=== PATIENT | female | born 1985 | race American Indian/Alaskan Native ===

== ENCOUNTER 2016-06-06 11:17 | Outpatient (CLI) | payer MEDICAID ==
[2016-06-06 12:16] VITALS: BP 109/59
[2016-06-06] MEDS ORDERED: LACTATED RINGERS 500 ML IV ONE (12:42)
--- NOTE | 2016-06-06 14:09 | Ultrasound Report ---
ULTRASOUND OB LIMITED History: Premature rupture of membranes Technique: Transabdominal ultrasound with Doppler interrogation. Gestation: Single Position: Cephalic Amniotic Fluid: Normal VERNON = 13.5 cm Heart Rate: 131 BPM
== END 2016-06-06 13:53 | disposition home or self-care (01) ==
LOC: TRG 11:17
PROVIDERS: ATTEND Obstetrics & Gynecology
DX: O42.92 Full-term premature rupture of membranes, unspecified as to length of time between rupture and onset of labor (principal); Z3A.36 36 weeks gestation of pregnancy
CPT/HCPCS: 59025; 76815

== ENCOUNTER 2016-06-16 20:03 | Outpatient (CLI) | payer MEDICAID ==
[2016-06-16 20:31] VITALS: BP 115/71
== END 2016-06-16 21:30 | disposition home or self-care (01) ==
LOC: TRG 20:03
PROVIDERS: ATTEND Obstetrics & Gynecology Gynecology
DX: Z34.93 Encounter for supervision of normal pregnancy, unspecified, third trimester (principal); Z3A.38 38 weeks gestation of pregnancy
CPT/HCPCS: 59025

== ENCOUNTER 2016-06-19 18:43 | Inpatient (IN) | payer MEDICAID ==
[2016-06-19] MEDS ORDERED: PHENERGAN PO PRN (20:56)
[2016-06-19] MEDS ORDERED: NARCAN 0.4 MG/1 ML IV PRN (20:56)
[2016-06-19] MEDS ORDERED: ePHEDrine SULFATE IV PRN (20:56)
[2016-06-19] MEDS ORDERED: BRETHINE IVP PRN (20:56)
[2016-06-19] MEDS ORDERED: BRETHINE SUB-Q PRN (20:56)
[2016-06-19] MEDS ORDERED: MINERAL OIL PO PRN (20:56)
[2016-06-19] MEDS ORDERED: STADOL IV PRN (20:56)
[2016-06-19] MEDS ORDERED: SUBLIMAZE IV PRN (20:56)
[2016-06-19] MEDS ORDERED: XYLOCAINE 2% INFILTRATI ONE (20:56)
[2016-06-19] MEDS ORDERED: ZOFRAN IV PRN (20:56)
[2016-06-19] MEDS ORDERED: PITOCin/NS 30 UNIT/500ML 30 UNITS/500 ML BAG IV SCH ×2 (21:00)
[2016-06-19] MEDS ORDERED: PITOCin/NS 20 UNIT/1000ML DRIP 20 UNITS/1,000 ML BAG IV SCH (21:00)
--- NOTE | 2016-06-19 21:08 | History and Physical Report ---
History of Present Illness Date of examination: 06/19/16 Chief complaint: Labor History of present illness: Pt is a 30yo BF EDC 06/29/16; EGA 38 4/7 weeks presents to L&D complaining of RUC's q 3-4 mins. She received care at [facility] since 13 weeks and course has been unremarkable except for h/o THC use and anemia. records are available and GBS is negative. Past History Past Medical History: no pertinent history Past Surgical History: no surgical history Social history: no significant social history, single, smoking - Obstetrical History Expected Date of Delivery: 06/29/16 Actual Gestation: 38 Week(s) 5 Day(s) : 6 Medications and Allergies Allergies Allergy/AdvReac Type Severity Reaction Status Date / Time No Known Allergies Allergy Verified 06/13/15 06:22 Home Medications Medication Instructions Recorded Confirmed Last Taken Type No Known Home Medications [No 06/27/13 06/13/15 Unknown History Reported Home Medications] Active Meds: Active Medications Butorphanol Tartrate (Stadol) 2 mg IV Q2H PRN PRN Reason: Pain , Severe (7-10) Ephedrine Sulfate (Ephedrine Sulfate) 10 mg IV Q2M PRN PRN Reason: Hypotension Stop: 06/19/16 21:01 Fentanyl (Sublimaze) 100 mcg IV Q2H PRN PRN Reason: Labor Pain Lactated Ringer's (Lactated Ringers) 1,000 mls @ 125 mls/hr IV DIRECT JULIANE Oxytocin/Sodium Chloride (Pitocin/Ns 20 Unit/1000ml Drip) 20 units in 1,000 mls @ 125 mls/hr IV DIRECT JULIANE Oxytocin/Sodium Chloride (Pitocin/Ns 30 Unit/500ml) 30 units in 500 mls @ 4 mls /hr IV TITR JULIANE PRN Reason: Protocol Oxytocin/Sodium Chloride (Pitocin/Ns 30 Unit/500ml) 30 units in 500 mls @ 1 mls /hr IV TITR JULIANE; 1 MILLIUNITS/MIN PRN Reason: Protocol Lidocaine (Xylocaine 2%) 20 ml INFILTRATI ONCE ONE Stop: 06/19/16 20:57 Mineral Oil (Mineral Oil) 30 ml PO QHS PRN PRN Reason: Constipation Naloxone HCl (Narcan 0.4 Mg/1 Ml) 0.1 mg IV Q2MIN PRN PRN Reason: Res Rate </= 8 or 02 SAT < 92% Ondansetron HCl (Zofran) 4 mg IV Q8H PRN PRN Reason: Nausea And Vomiting Promethazine HCl (Phenergan) 25 mg PO Q6H PRN PRN Reason: Nausea And Vomiting Terbutaline Sulfate (Brethine) 0.25 mg SUB-Q ONCE PRN PRN Reason: Hyperstimulation/Hypertonicity Stop: 06/19/16 20:57 Terbutaline Sulfate (Brethine) 0.25 mg IVP ONCE PRN PRN Reason: Hyperstimulation/Hypertonicity Stop: 06/19/16 20:57 Review of Systems All systems: negative - Vital Signs Vital signs: Vital Signs Pulse BP 91 H 110/69 06/19/16 19:08 06/19/16 19:08 Temp Pulse Resp BP Pulse Ox 98.2 F 84 18 110/69 97 06/19/16 19:20 06/19/16 20:29 06/19/16 19:20 06/19/16 19:08 06/19/16 20:29 - Physical Exam Breasts: Positive: deferred Cardiovascular: Regular rate Lungs: Positive: Clear to auscultation Abdomen: Positive: normal appearance Genitourinary (Female): Positive: normal external genitalia Uterus: Positive: enlarged Extremities: Positive: normal - Obstetrical FHR: category 1 Uterine Contraction Monitor Mode: External Cervical Dilatation: 4 Cervical Effacement Percentage: 80 station: -2 Uterine Contraction Pattern: Regular Uterine Tone Measurement Phase: Contraction Uterine Contraction Intensity: Moderate Results Result Diagrams: 06/19/16 21:10 All other labs normal. Assessment and Plan - Patient Problems (1) 38 weeks gestation of Onset Date: 06/20/16 Current Visit: Yes Status: Acute Plan to address problem: A: IUP @ 38 5/7 weeks in labor P: Admit to L&D for expectant vaginal delivery
[2016-06-19 21:52] LABS: Hematocrit 25.6 % (30.3-42.9); Hemoglobin 8.1 gm/dl (10.1-14.3); Mean Corpuscular HGB Conc 32 % (30-34); Mean Corpuscular Volume 82 fl (79-97); Platelet Count 246 K/mm3 (140-440); Red Blood Count 3.14 M/mm3 (3.65-5.03)
[2016-06-19] MEDS: LACTATED RINGERS 1,000 ML IV SCH ×2 (22:03→23:02)
[2016-06-19 22:55] LABS: Mean Corpuscular Hemoglobin 26 pg (28-32)
[2016-06-19] MEDS ORDERED: ePHEDrine SULFATE ONE (23:20)
[2016-06-20] MEDS ORDERED: ePHEDrine SULFATE IV PRN (00:26)
--- NOTE | 2016-06-20 00:26 | Anesthesia Consultation ---
Anesthesia Consult and Med Hx Date of service: 06/20/16 - Airway Anesthetic Teeth Evaluation: Good ROM Head & Neck: Adequate Mental/Hyoid Distance: Adequate Mallampati Class: Class II Intubation Access Assessment: Probably Good - Pulmonary Exam CTA: Yes - Cardiac Exam Cardiac Exam: RRR - Pre-Operative Health Status ASA Pre-Surgery Classification: ASA2 Proposed Anesthetic Plan: Epidural, Spinal - Pulmonary Hx Smoking: Yes (current smoker) Hx Asthma: No COPD: No Hx Pneumonia: No - Cardiovascular System Hx Hypertension: No Hx Heart Attack/AMI: No Hx Pacemaker: No Hx Internal Defibrillator: No - Central Nervous System Hx Seizures: No Hx Psychiatric Problems: No - Endocrine Hx Renal Disease: No Hx End Stage Renal Disease: No Hx Liver Disease: No Hx Hypothyroidism: No Hx Hyperthyroidism: No - Hematic Hx Anemia: Yes Hx Sickle Cell Disease: No - Other Systems Hx Alcohol Use: No - Additional Comments Anesthesia Medical History Comments: +IUP
--- NOTE | 2016-06-20 00:36 | Procedure Note ---
OB Delivery Note - Delivery Date of Delivery: 06/20/16 Surgeon: ALIREZA GOMEZ Estimated blood loss: 200cc - Vaginal Delivery presentation: vertex Delivery position: OA Intrapartum events: none Delivery induction: oxytocin Delivery augmentation: rupture of membranes Delivery monitor: external FHT, external uterine Route of delivery: Delivery placenta: spontaneous Delivery cord: 3 umbilical vessels Episiotomy: none Delivery laceration: none Anesthesia: epidural - A at 1 minute: 8 at 5 minutes: 9 Gender: Male (2939gms)
[2016-06-20] MEDS ORDERED: MILK OF MAGNESIA PO PRN (00:48)
[2016-06-20] MEDS ORDERED: DERMOPLAST TP PRN (00:48)
[2016-06-20] MEDS ORDERED: LANSINOH TP PRN (00:48)
[2016-06-20] MEDS ORDERED: PHENERGAN PR PRN (00:48)
[2016-06-20] MEDS ORDERED: PHENERGAN PO PRN (00:48)
[2016-06-20] MEDS ORDERED: NORCO 5/325 PO PRN (00:48)
[2016-06-20] MEDS ORDERED: DULCOLAX PR PRN (00:48)
[2016-06-20] MEDS ORDERED: ANUCORT-HC PR PRN (00:48)
[2016-06-20] MEDS ORDERED: TYLENOL PO PRN (00:48)
[2016-06-20] MEDS ORDERED: ZOFRAN IV PRN (00:48)
[2016-06-20] MEDS ORDERED: BENADRYL PO PRN (00:48)
[2016-06-20] MEDS ORDERED: TUCKS PAD TP PRN (00:48)
[2016-06-20] MEDS ORDERED: SODIUM CHLORIDE FLUSH SYRINGE 10 ML IV NR (01:00)
[2016-06-20] MEDS ORDERED: PITOCin/NS 20 UNIT/1000ML DRIP 20 UNITS/1,000 ML BAG IV SCH (01:00)
[2016-06-20] MEDS ORDERED: fentaNYL-BUPIV 2 MCG/ML-0.125% 200 MCG/100 ML BAG EPIDURAL SCH (01:00)
[2016-06-20] MEDS: MOTRIN PO SCH ×3 (05:38→17:41)
[2016-06-20] MEDS ORDERED: COLACE PO SCH (10:00)
[2016-06-20] MEDS ORDERED: PRENATAL VITAMIN PO SCH (10:00)
[2016-06-20] MEDS: FEOSOL PO SCH ×2 (10:05→21:55)
[2016-06-20] MEDS: SENOKOT S PO SCH ×2 (10:05→21:55)
[2016-06-20 13:51] LABS: Hematocrit 24.8 % (30.3-42.9)
[2016-06-21] MEDS: MOTRIN PO SCH ×2 (00:48→05:36)
[2016-06-21] MEDS ORDERED: M-M-R II VACCINE SUB-Q ONE (06:00)
[2016-06-21] MEDS ORDERED: BOOSTRIX IM ONE (06:05)
--- NOTE | 2016-06-21 09:54 | Progress Note ---
Assessment and Plan - Patient Problems (1) 38 weeks gestation of Onset Date: 06/20/16 Current Visit: Yes Status: Resolved (2) (normal spontaneous vaginal delivery) Onset Date: 06/21/16 Current Visit: Yes Status: Resolved Plan to address problem: A: S/P - PPD #1 Doing well Asymptomatic anemia - stable P: May go home today Subjective - Subjective Date of service: 06/21/16 Principal diagnosis: s/p - PPD #1 Interval history: Pt is feeling well without complaints. Bleeding improved. Patient reports: appetite normal, voiding normally, pain well controlled, ambulating normally : doing well, bottle feeding Objective - Vital Signs Latest vital signs: Vital Signs Temp Pulse Resp BP 06/21/16 00:00 98.6 F 56 L 18 110/69 06/20/16 20:00 98.6 F 77 16 120/76 06/20/16 15:45 98.4 F 86 18 137/76 06/20/16 11:45 98.3 F 65 16 110/70 Intake and Output 06/20/16 06/21/16 06/21/16 22:59 06:59 14:59 Intake Total 720 Balance 720 Intake: Oral 720 Other: Total, Intake Amount 720 # Voids Void 1 - Exam Breasts: Present: deferred Cardiovascular: Present: Regular rate Lungs: Present: Clear to auscultation Abdomen: Present: normal appearance, soft Uterus: Present: normal, firm, fundal height below umbilicus Extremities: Present: normal - Labs Labs: Abnormal lab results 06/20/16 Range/Units 12:44 Hgb 8.0 L (10.1-14.3) gm/dl Hct 24.8 L (30.3-42.9) % Laboratory Tests 06/19/16 06/19/16 06/20/16 21:10 21:10 12:44 WBC 13.0 H RBC 3.14 L Hgb 8.1 L 8.0 L Hct 25.6 L 24.8 L MCV 82 MCH 26 L MCHC 32 RDW 16.0 H Plt Count 246 Blood Type A POSITIVE Antibody Screen Negative
[2016-06-21 10:00] VITALS: BP 106/71
--- NOTE | 2016-06-21 10:21 | Discharge Summary ---
Providers - Providers Date of Admission: 06/19/16 20:57 Date of discharge: 06/21/16 Attending physician: ALIREZA GOMEZ Primary care physician: ALIREZA GOMEZ Hospitalization Reason for admission: active labor, IUP at term Delivery: Episiotomy: none Laceration: none Other procedures: none complications: none Discharge diagnosis: IUP at term delivered Tower baby: male Hospital course: Unremarkable. Condition at discharge: Good Disposition: DISCHARGED TO HOME OR SELFCARE - Discharge Diagnoses (1) 38 weeks gestation of Status: Resolved (2) (normal spontaneous vaginal delivery) Status: Resolved Plan - Discharge Medications Prescriptions: Ferrous Sulfate [Feosol 325 MG tab] 325 mg PO BID #60 tablet Ibuprofen [Motrin 600 MG tab] 600 mg PO Q6H #30 tablet Vit-Fe Fumar-FA [ Vitamin] 1 each PO QDAY #30 tablet - Provider Discharge Summary Activity: routine, no sex for 6 weeks, no heavy lifting 4 weeks, no strenuous exercise Diet: routine Instructions: routine Additional instructions: [] Smoking cessation referral if applicable(refer to patient education folder for contact #) [] Refer to [facility]'s [facility] Booklet Call your doctor immediately for: * Fever > 100.5 * Heavy vaginal bleeding ( >1 pad per hour) * Severe persistent headache * Shortness of breath * Reddened, hot, painful area to leg or breast * Drainage or odor from incision. * Keep incision clean and dry at all times and follow doctor's instructions regarding bathing/showering - Follow up plan Follow up: ALIREZA GOMEZ MD [Primary Care Provider] - 14 Days
--- NOTE | 2016-06-21 13:26 | Progress Note ---
Subjective Date of service: 06/21/16 Principal diagnosis: s/p - PPD #1 Interval history: 1st day after normal vaginal delivery Patient is in the bed, comfortable. Pain is mostly controlled with pain meds. Ambulated well. No nausea or vomiting. No residual neurological deficit. No anesthesia complications Objective - Constitutional Vitals: Vital Signs - 12hr 06/21/16 08:50 Temperature 98.5 F Pulse Rate [ 61 From Monitor] Respiratory 24 Rate Blood Pressure 106/71 [Left Arm] - Labs CBC & Chem 7: 06/20/16 12:44 Labs: Abnormal lab results 06/20/16 Range/Units 12:44 Hgb 8.0 L (10.1-14.3) gm/dl Hct 24.8 L (30.3-42.9) %
== END 2016-06-21 12:10 | disposition home or self-care (01) | DRG 775 ==
LOC: TRG 18:43 → LD 20:57 → OB 06-20 03:22
PROVIDERS: ADMIT Obstetrics & Gynecology; ATTEND Obstetrics & Gynecology
PROC: 10E0XZZ Delivery of Products of Conception, External Approach (ICD-10-PCS; principal; 2016-06-20)
PROC: 3E033VJ Introduction of Other Hormone into Peripheral Vein, Percutaneous Approach (ICD-10-PCS; 2016-06-20)
PROC: 00HU33Z Insertion of Infusion Device into Spinal Canal, Percutaneous Approach (ICD-10-PCS; 2016-06-20)
PROC: 3E0R3CZ (ICD-10-PCS; 2016-06-20)
DX: O99.02 Anemia complicating childbirth (principal); O99.334 Smoking (tobacco) complicating childbirth; O99.324 Drug use complicating childbirth; D64.9 Anemia, unspecified; Z3A.38 38 weeks gestation of pregnancy; Z37.0 Single live birth
CPT/HCPCS: 36415; 85014; 85018; 85027; 86850; 86900; 86901; 99406; J2590; J3010; J7120

== ENCOUNTER 2016-08-13 06:58 | Emergency (ER) | payer MEDICAID | END 2016-08-13 12:36 | disposition left against medical advice (07) | LOC: ED 06:58 | DX: M54.5 Low back pain (principal); Z53.21 Procedure and treatment not carried out due to patient leaving prior to being seen by health care provider ==

== ENCOUNTER 2016-08-13 07:11 | Day surgery (SDC) | payer MEDICAID ==
--- NOTE | 2016-08-13 07:23 | Short Stay Summary ---
Short Stay Documentation Date of service: 08/13/16 Narrative H&P: Pt is a 31yo BF S/P 06/20/16 presents for permanent sterilization - History Principal diagnosis: Desires permanent sterilization H&P: obtained from office Past Medical History: No medical history Past Surgical History: No surgical history Social history: no significant social history, single - Allergies and Medications Current Medications: Allergies No Known Allergies Allergy (Verified 08/08/16 10:20) Active Medications Cefazolin Sodium (Ancef/Sterile Water 2 Gm/20 Ml) 2 gm in 20 mls @ 80 mls/hr IV PREOP NR PRN Reason: Protocol Lactated Ringer's (Lactated Ringers) 1,000 mls @ 125 mls/hr IV DIRECT JULIANE - Physical exam General appearance: no acute distress Integumentary: no rash HEENT: Atraumatic Lungs: Clear to auscultation Breasts: deferred Heart: Regular rate Gastrointestinal: normal Female Genitourinary: deferred Rectal Exam: deferred Extremities: No edema Neurological: Normal gait, Normal speech - Brief post op/procedure progress note Date of procedure: 08/13/16 Pre-op diagnosis: Desires permanent sterilization Post-op diagnosis: same Procedure: Laproscopic Bilateral Tubal Ligation Anesthesia: GETA Findings: Normal uterus. Normal tubes and ovaries bilaterally. Normal appendix. Surgeon: ALIREZA GOMEZ Estimated blood loss: minimal Pathology: none Condition: stable - Hospital course Hospital course: Unremarkable. - Disposition Condition at discharge: Good Disposition: DISCHARGED TO HOME OR SELFCARE - Discharge Diagnoses (1) Sterilization Status: Resolved (2) Contraception management Status: Resolved Qualifiers: Contraceptive encounter type: sterilization IUD management: I Contraceptive type: C Qualified Code(s): Z30.2 - Encounter for sterilization Short Stay Discharge Plan Activity: no restrictions Diet: regular Wound: open to air, keep clean and dry Follow up with: ALIREZA GOMEZ MD [Primary Care Provider] - 14 Days Prescriptions: HYDROcodone/APAP 5-325 [[place] 5/325] 1 each PO Q6HR PRN #20 tablet PRN Reason: Pain
[2016-08-13] MEDS ORDERED: MARCAINE 0.5% 30 ML INFILTRATI ONE (07:49)
[2016-08-13] MEDS ORDERED: DILAUDID ONE (07:59)
[2016-08-13] MEDS ORDERED: DIPRIVAN 10 MG/ML IV ONE (08:00)
[2016-08-13] MEDS ORDERED: NEO SYNEPHRINE/NS Syringe(OR USE) IV ONE (08:00)
[2016-08-13] MEDS ORDERED: ANCEF/STERILE WATER 2 GM/20 ML 2 GM/20 ML SYRINGE IV NR (08:00)
[2016-08-13] MEDS ORDERED: LACTATED RINGERS 1,000 ML IV SCH (08:00)
[2016-08-13] MEDS ORDERED: ZEMURON IV ONE (08:02)
[2016-08-13] MEDS ORDERED: XYLOCAINE MPF 2% ONE (08:02)
[2016-08-13] MEDS ORDERED: ZOFRAN ONE (08:03)
[2016-08-13] MEDS ORDERED: DECADRON ONE (08:03)
[2016-08-13] MEDS ORDERED: NEOSTIGMINE ONE (08:03)
[2016-08-13] MEDS ORDERED: ROBINUL ONE ×2 (08:03)
--- NOTE | 2016-08-13 08:19 | Anesthesia Consultation ---
Anesthesia Consult and Med Hx Date of service: 08/13/16 - Airway Anesthetic Teeth Evaluation: Poor, Chipped (multiple chipped/damaged upper front , all molars pulled) ROM Head & Neck: Adequate Mental/Hyoid Distance: Adequate Mallampati Class: Class II Intubation Access Assessment: Probably Good - Pulmonary Exam CTA: Yes - Cardiac Exam Cardiac Exam: RRR - Pre-Operative Health Status ASA Pre-Surgery Classification: ASA2 Proposed Anesthetic Plan: General - Pulmonary Hx Smoking: Yes (3-4 cigs/day) Hx Asthma: No COPD: No Hx Pneumonia: No - Cardiovascular System Hx Hypertension: No Hx Heart Attack/AMI: No Hx Pacemaker: No Hx Internal Defibrillator: No - Central Nervous System Hx Seizures: No Hx Psychiatric Problems: No - Endocrine Hx Renal Disease: No Hx End Stage Renal Disease: No Hx Liver Disease: No Hx Hypothyroidism: No Hx Hyperthyroidism: No - Hematic Hx Anemia: Yes Hx Sickle Cell Disease: No - Other Systems Hx Alcohol Use: No Hx Cancer: No
--- NOTE | 2016-08-13 08:20 | Anesthesia Day of Surgery ---
Anesthesia Day of Surgery - Day of Surgery Patient Examined: Yes Patient H&P Reviewed: Yes Patient is NPO: Yes
[2016-08-13] MEDS ORDERED: NACL BACTERIOSTATIC INFILTRATI ONE (08:28)
[2016-08-13] MEDS ORDERED: PEPCID IV NR (09:00)
[2016-08-13] MEDS ORDERED: VERSED IV NR (09:00)
[2016-08-13 09:04] LABS: Hematocrit 33.8 % (30.3-42.9); Hemoglobin 10.5 gm/dl (10.1-14.3)
[2016-08-13] MEDS ORDERED: NACL 0.9% IR ONE (09:14)
[2016-08-13] MEDS ORDERED: MARCAINE 0.5% INFILTRATI ONE ×3 (09:14)
[2016-08-13] MEDS ORDERED: LACTATED RINGERS 1,000 ML ONE (09:36)
--- NOTE | 2016-08-13 09:48 | Operative Report ---
Operative Report Operative Report: PREOPERATIVE DIAGNOSIS: Desires permanent sterilization POSTOPERATIVE DIAGNOSIS: Same OPERATIVE PROCEDURE: Laparoscopic bilateral tubal ligation. SURGEON: Maurice Ruiz MD ANESTHESIA: General endotracheal intubation ANESTHESIOLOGIST: Dr. Kaplan ESTIMATED BLOOD LOSS: 10 mL's FINDINGS: A normal uterus with normal tubes and ovaries bilaterally. Normal appendix. COMPLICATIONS: None COUNTS: Correct x3. PROCEDURE: After the patient was correctly identified and after general anesthesia was administered, the patient was prepped and draped in usual sterile fashion and placed in dorsal lithotomy position. First, the bladder was emptied using a straight catheter. Next, a speculum was placed in the vaginal vault and the anterior lip of the cervix was grasped using a single- tooth tenaculum. The uterine manipulator was then placed and the tenaculum and speculum were removed. Attention was then turned to the abdomen where first a periumbilical incision was made using a skin knife, and the Optiview trocar was inserted under direct visualization. After an adequate amount of abdominal insufflation, visualization of the pelvic organs found the uterus to be normal, and the tubes and ovaries to be normal bilaterally. Next, the left fallopian tube was grasped using the Kleppingers, and after identifying the fimbriated end of the left tube, this tube was cauterized in 3 continuous [address] along the proximal portion of the left tube. The same procedure was performed on the right fallopian tube after first identifying the fimbriated end of the right tube. This tube was also cauterized in 3 continuous places along the proximal portion of the right tube. At this point, the procedure was then considered complete. All instruments were removed from the abdomen. The abdomen was deflated and the periumbilical incision was closed using 0 Vicryl suture in a [id number] configuration on the fascia, followed by 4-0 Monocryl suture in subcuticular fashion on the skin. The incision was also infiltrated using 0.5% Marcaine solution. The uterine manipulator was removed. The patient tolerated the procedure well and was transferred to recovery room stable condition.
--- NOTE | 2016-08-13 10:38 | Post Anesthesia Evaluation ---
- Post Anesthesia Evaluation Patient Participated: Yes Airway Patent: Yes Stable Respiratory Function: Yes Nausea/Vomiting: No Temp > 96.8F: Yes Pain Manageable: Yes Adequeate Hydration: Yes Anesthesia Complications: No Block Receding Appropriately: Not Applicable Patient on Ventilator: No
[2016-08-13 10:44] VITALS: BP 114/66
== END 2016-08-13 11:15 | disposition home or self-care (01) ==
LOC: OR 07:11
PROVIDERS: ATTEND Obstetrics & Gynecology
DX: Z30.2 Encounter for sterilization (principal); F17.210 Nicotine dependence, cigarettes, uncomplicated; D64.9 Anemia, unspecified
CPT/HCPCS: 36415; 58670; 81025; 85014; 85018; J0690; J1100; J1170; J2250; J2370; J2405; J2704; J2710; J7120

== ENCOUNTER 2017-02-02 22:45 | Emergency (ER) | payer SELFPAY ==
[2017-02-03 03:43] VITALS: BP 111/74
--- NOTE | 2017-02-03 08:19 | Event Note ---
Date: 02/03/17 no answer in wr [id number]
== END 2017-02-03 07:20 | disposition left against medical advice (07) ==
LOC: ED 22:45
DX: M54.5 Low back pain (principal); Z53.21 Procedure and treatment not carried out due to patient leaving prior to being seen by health care provider

== ENCOUNTER 2018-11-14 23:46 | Emergency (ER) | payer SELFPAY ==
[2018-11-14 23:54] VITALS: BP 117/73
[2018-11-15 00:32] LABS: Basophils # (Auto) 0.1 K/mm3 (0.0-0.1); Eosinophils # (Auto) 0.2 K/mm3 (0.0-0.4); Eosinophils % (Auto) 2.8 % (0.0-4.3); Hematocrit 34.6 % (30.3-42.9); Hemoglobin 11.3 gm/dl (10.1-14.3); Lymphocytes # (Auto) 2.5 K/mm3 (1.2-5.4); Lymphocytes % (Auto) 29.5 % (13.4-35.0); Mean Corpuscular HGB Conc 33 % (30-34); Mean Corpuscular Volume 85 fl (79-97); Monocytes # (Auto) 0.6 K/mm3 (0.0-0.8); Monocytes % (Auto) 7.1 % (0.0-7.3); Platelet Count 284 K/mm3 (140-440); Red Blood Count 4.07 M/mm3 (3.65-5.03); Red Cell Distribution Width 18.8 % (13.2-15.2)
[2018-11-15 00:45] LABS: Albumin 4.2 g/dL (3.9-5); BUN/Creatinine Ratio 10; Blood Urea Nitrogen 8 mg/dL (7-17); Calcium 9.3 mg/dL (8.4-10.2); Hemolysis Index 5
[2018-11-15 00:51] LABS: Alanine Aminotransferase < 5 units/L (7-56)
[2018-11-15] MEDS ORDERED: NACL 0.9% 1000 ML 1,000 ML IV ONE (03:21)
[2018-11-15] MEDS ORDERED: ZOFRAN IV ONE (03:21)
--- NOTE | 2018-11-15 03:45 | Emergency Department Report ---
ED Abdominal Pain HPI - General Chief Complaint: Abdominal Pain Stated Complaint: ABDOMINAL AND BACK PAIN Time Seen by Provider: 11/15/18 03:20 Source: patient Mode of arrival: Ambulatory Limitations: No Limitations - History of Present Illness Initial Comments: Patient is a 33-year-old -[place] female who presents for abdominal pain bilateral lower body by 1 with MR with low as long low level Y the all normal he no perianal exam reveals normal 3 days rated at 5/10 there is no n/v no fever or chills. pt is tolerating po intake denies hx of ovarian cyst no fibroids, no dysuria frequency or urgency, no vaginal discharge or bleeding. MD Complaint: abdominal pain (-year-old) Onset/Timin -: days(s) Location: LLQ, RLQ Radiation: LLQ, RLQ Severity: moderate Severity scale (0 -10): 4 Quality: cramping Consistency: constant Improves With: nothing Worsens With: nothing Associated Symptoms: nausea. denies: vomiting, diarrhea, fever, chills, constipation, dysuria, melena, hematuria - Related Data LMP Date: 11/09/18 Home Medications Medication Instructions Recorded Confirmed Last Taken medroxyPROGESTERone ACETATE 150 mg IM ONCE 08/13/16 08/13/16 06/29/16 [Depo-Provera (Contraception)] Previous Rx's Medication Instructions Recorded Last Taken Type HYDROcodone/APAP 5-325 [[place] 1 each PO Q6HR PRN #20 tablet 08/13/16 Unknown Rx 5/325] Ciprofloxacin HCl [Cipro] 500 mg PO BID #14 tablet 02/17/18 Unknown Rx Ibuprofen [Motrin] 600 mg PO Q8H PRN #20 tablet 02/17/18 Unknown Rx traMADol [Ultram] 50 mg PO Q6HR PRN #12 tablet 02/17/18 Unknown Rx Phenazopyridine [Pyridium] 200 mg PO TID #9 tab 02/20/18 Unknown Rx Ibuprofen [Motrin 800 MG tab] 800 mg PO Q8HR PRN #30 tablet 11/15/18 Unknown Rx Nitrofurantoin Archer/M-Cryst 100 mg PO BID 7 Days #14 capsule 11/15/18 Unknown Rx [Macrobid CAP] Allergies Allergy/AdvReac Type Severity Reaction Status Date / Time No Known Allergies Allergy Verified 02/20/18 13:22 ED Review of Systems ROS: Stated complaint: ABDOMINAL AND BACK PAIN Other details as noted in HPI Constitutional: denies: chills, fever Eyes: denies: eye pain, eye discharge, vision change ENT: denies: ear pain, throat pain Respiratory: denies: cough, shortness of breath, wheezing Cardiovascular: denies: chest pain, palpitations Endocrine: no symptoms reported Gastrointestinal: abdominal pain, nausea. denies: vomiting, diarrhea, constipation, hematemesis, melena Genitourinary: denies: urgency, dysuria, discharge Musculoskeletal: denies: back pain, joint swelling, arthralgia Skin: denies: rash, lesions Neurological: denies: headache, weakness, paresthesias Psychiatric: denies: anxiety, depression Hematological/Lymphatic: denies: easy bleeding, easy bruising ED Past Medical Hx - Past Medical History Previous Medical History?: Yes Hx Hypertension: No Hx CVA: No Hx Heart Attack/AMI: No Hx Congestive Heart Failure: No Hx Diabetes: No Hx Deep Vein Thrombosis: No Hx Pulmonary Embolism: No Hx GERD: No Hx Liver Disease: No Hx Renal Disease: No Hx Sickle Cell Disease: No Hx Arthritis: No Hx Headaches / Migraines: No Hx Seizures: No Hx Kidney Stones: No Hx Psychiatric Treatment: No Hx Asthma: Yes Hx COPD: No Hx Tuberculosis: No Hx Dementia: No Hx HIV: No - Surgical History Past Surgical History?: Yes Hx Coronary Stent: No Hx Open Heart Surgery: No Hx Pacemaker: No Hx Internal Defibrillator: No Hx Cholecystectomy: No Hx Appendectomy: No Hx Breast Surgery: No Additional Surgical History: tubal ligation 07/2016 - Social History Smoking Status: Current Every Day Smoker Substance Use Type: None - Medications Home Medications: Home Medications Medication Instructions Recorded Confirmed Last Taken Type HYDROcodone/APAP 5-325 [[place] 1 each PO Q6HR PRN #20 tablet 08/13/16 Unknown Rx 5/325] medroxyPROGESTERone ACETATE 150 mg IM ONCE 08/13/16 08/13/16 06/29/16 History [Depo-Provera (Contraception)] Ciprofloxacin HCl [Cipro] 500 mg PO BID #14 tablet 02/17/18 Unknown Rx Ibuprofen [Motrin] 600 mg PO Q8H PRN #20 tablet 02/17/18 Unknown Rx traMADol [Ultram] 50 mg PO Q6HR PRN #12 tablet 02/17/18 Unknown Rx Phenazopyridine [Pyridium] 200 mg PO TID #9 tab 02/20/18 Unknown Rx Ibuprofen [Motrin 800 MG tab] 800 mg PO Q8HR PRN #30 tablet 11/15/18 Unknown Rx Nitrofurantoin Archer/M-Cryst 100 mg PO BID 7 Days #14 capsule 11/15/18 Unknown Rx [Macrobid CAP] ED Physical Exam - General Limitations: No Limitations General appearance: alert, in no apparent distress - Head Head exam: Present: atraumatic, normocephalic - Eye Eye exam: Present: normal appearance, PERRL, EOMI Pupils: Present: normal accommodation - ENT ENT exam: Present: normal orophraynx, mucous membranes moist, TM's normal bilaterally, normal external ear exam - Neck Neck exam: Present: normal inspection, tenderness, full ROM. Absent: lymphadenopathy - Respiratory Respiratory exam: Present: normal lung sounds bilaterally. Absent: respiratory distress, wheezes, stridor, chest wall tenderness - Cardiovascular Cardiovascular Exam: Present: regular rate, normal rhythm, normal heart sounds. Absent: systolic murmur, diastolic murmur, rubs, gallop - GI/Abdominal GI/Abdominal exam: Present: soft, normal bowel sounds. Absent: distended, tenderness, bruit, hernia - Rectal Rectal exam: Present: deferred - Extremities Exam Extremities exam: Present: normal inspection, normal capillary refill. Absent: calf tenderness - Back Exam Back exam: Present: normal inspection, full ROM. Absent: tenderness, CVA tenderness (R), CVA tenderness (L), muscle spasm, paraspinal tenderness, rash noted - Neurological Exam Neurological exam: Present: alert, oriented X3, CN II-XII intact, normal gait - Psychiatric Psychiatric exam: Present: normal affect, normal mood - Skin Skin exam: Present: warm, dry, intact, normal color. Absent: rash ED Course Vital Signs 11/14/18 23:52 Temperature 99 F Pulse Rate 80 Respiratory 18 Rate Blood Pressure 117/73 O2 Sat by Pulse 98 Oximetry ED Medical Decision Making - Lab Data Result diagrams: 11/15/18 00:13 11/15/18 00:13 Labs 11/14/18 11/15/18 11/15/18 04:10 00:13 00:13 WBC 8.6 RBC 4.07 Hgb 11.3 Hct 34.6 MCV 85 MCH 28 MCHC 33 RDW 18.8 H Plt Count 284 Lymph % (Auto) 29.5 Archer % (Auto) 7.1 Eos % (Auto) 2.8 Baso % (Auto) 1.0 Lymph # 2.5 Archer # 0.6 Eos # 0.2 Baso # 0.1 Seg Neutrophils % 59.6 Seg Neutrophils # 5.1 Sodium Potassium Chloride Carbon Dioxide Anion Gap BUN Creatinine Estimated GFR BUN/Creatinine Ratio Glucose Calcium Total Bilirubin AST ALT Alkaline Phosphatase Total Protein Albumin Albumin/Globulin Ratio HCG, Qual Negative Urine Color Yellow Urine Turbidity Slightly-cloudy Urine pH 5.0 Ur Specific Amasa 1.024 Urine Protein 30 mg/dl Urine Glucose (UA) Neg Urine Ketones Neg Urine Blood Neg Urine Nitrite Neg Urine Bilirubin Neg Urine Urobilinogen 4.0 Ur Leukocyte Esterase Mod Urine WBC (Auto) 64.0 H Urine RBC (Auto) 5.0 U Epithel Cells (Auto) 6.0 Urine Mucus 3+ 11/15/18 00:13 WBC RBC Hgb Hct MCV MCH MCHC RDW Plt Count Lymph % (Auto) Archer % (Auto) Eos % (Auto) Baso % (Auto) Lymph # Archer # Eos # Baso # Seg Neutrophils % Seg Neutrophils # Sodium 141 Potassium 3.3 L Chloride 102.3 Carbon Dioxide 24 Anion Gap 18 BUN 8 Creatinine 0.8 Estimated GFR > 60 BUN/Creatinine Ratio 10 Glucose 211 H Calcium 9.3 Total Bilirubin 0.20 AST 14 ALT < 5 L Alkaline Phosphatase 86 Total Protein 7.9 Albumin 4.2 Albumin/Globulin Ratio 1.1 HCG, Qual Urine Color Urine Turbidity Urine pH Ur Specific Amasa Urine Protein Urine Glucose (UA) Urine Ketones Urine Blood Urine Nitrite Urine Bilirubin Urine Urobilinogen Ur Leukocyte Esterase Urine WBC (Auto) Urine RBC (Auto) U Epithel Cells (Auto) Urine Mucus - Medical Decision Making symptoms improved , ua: pos for luek wbc, plan macrobid, ibuprofen follow up with pcp in 2-3 days return to ed if symptoms worsen. pt verbalized agreement and understanding of discharge plan. Critical care attestation.: If time is entered above; I have spent that time in minutes in the direct care of this critically ill patient, excluding procedure time. ED Disposition Clinical Impression: UTI (urinary tract infection) Qualifiers: Urinary tract infection type: acute cystitis Hematuria presence: without hematuria Qualified Code(s): N30.00 - Acute cystitis without hematuria Disposition: TO HOME OR SELFCARE Is pt being admited?: No Does the pt Need Aspirin: No Condition: Stable Instructions: Urinary Tract Infection in Women (ED) Prescriptions: Nitrofurantoin Archer/M-Cryst [Macrobid CAP] 100 mg PO BID 7 Days #14 capsule Ibuprofen [Motrin 800 MG tab] 800 mg PO Q8HR PRN #30 tablet PRN Reason: pain Referrals: [facility] [Outside] - 3-5 Days Forms: Work/School Release Form(ED) Time of Disposition: 05:07
[2018-11-15 04:49] LABS: Bilirubin,Urine NEG (Negative); Blood,Urine NEG (Negative); Color,Urine Yellow (Yellow); Mucus,Urine 3+ /HPF
== END 2018-11-15 05:36 | disposition home or self-care (01) ==
LOC: ED 23:46
DX: N39.0 Urinary tract infection, site not specified (principal); J45.909 Unspecified asthma, uncomplicated; F17.200 Nicotine dependence, unspecified, uncomplicated; Z98.51 Tubal ligation status
CPT/HCPCS: 36415; 80053; 81001; 84703; 85025; 87086; 96374; 99283; J2405; J7030